=== PATIENT | male | born 1975 | race Hispanic/Latino ===

== ENCOUNTER 2018-02-05 21:13 | Emergency (ER) | payer SELFPAY ==
[~2018-02-05] VITALS: Ht 172.7 cm; Wt 84.0 kg
[2018-02-05 22:00] LABS: HEMATOCRIT 42.5 % (39.0-50.0); HEMOGLOBIN 14.4 g/dl (14.0-18.0); IMMATURE GRANULOCYTES 0.2 % (0.0-1.0); MEAN CELL VOLUME 91.6 fL CALC (80.0-100.0); MEAN CORPUSCULAR HGB CONC 33.9 g/L CALC (32.0-36.0); NEUT# 6.29 thou/uL (1.82-7.42); RED BLOOD COUNT 4.64 mill/uL (4.70-6.10); RED CELL DISTRI WIDTH 12.7 % (11.5-15.5)
[2018-02-05 22:08] LABS: ALBUMIN 3.7 g/dL (3.2-5.0); ALKALINE PHOSPHATASE 69 u/l (38-126); ANION GAP 19 (6-22 (CALC)); BILIRUBIN, TOTAL 0.4 mg/dL (0.0-1.4); BUN 15 mg/dL (9-20); BUN/CREATININE RATIO 18 (12-20 (CALC)); CARBON DIOXIDE 24 mmol/l (22-30); CHLORIDE 104 mmol/l (95-108); CREATININE 0.8 mg/dL (0.7-1.3); GFR > 60 ML/MIN (>=60 (CALC)); GFR FOR AFR.AMER. > 60 ML/MIN (>=60 (CALC)); POTASSIUM 3.7 mmol/l (3.5-5.1); SGOT/AST 24 u/l (17-59); SGPT/ALT 31 u/l (21-72); SODIUM 143 mmol/l (137-146); TOTAL PROTEIN 6.7 g/dL (6.3-8.2)
[2018-02-05] MEDS ORDERED: KEFLEX500 M1 PO (23:28)
[2018-02-05] MEDS ORDERED: PERCOCET 5/325M1 TAB PO (23:28)
[2018-02-06 00:01] VITALS: BP 121/80
== END 2018-02-06 00:01 | disposition home or self-care (01) | DRG 607 ==
LOC: ED 21:13
PROVIDERS: Emergency Medicine
DX: R22.2 Localized swelling, mass and lump, trunk (principal); F17.210 Nicotine dependence, cigarettes, uncomplicated

== ENCOUNTER 2018-02-06 23:25 | Emergency (ER) | payer SELFPAY ==
[~2018-02-06] VITALS: Ht 172.7 cm; Wt 85.6 kg
[~2018-02-06 23:25] MED LIST: KEFLEX500 M1 PO; PERCOCET 5/325M1 TAB PO
[2018-02-07 01:48] VITALS: BP 102/66
== END 2018-02-07 01:48 | disposition home or self-care (01) | DRG 395 ==
LOC: ED 23:25
DX: K61.0 Anal abscess (principal)

== ENCOUNTER 2020-05-04 10:39 | Emergency (ER) | payer OTHER ==
[~2020-05-04] VITALS: Ht 172.7 cm; Wt 81.0 kg
[2020-05-04 12:01] LABS: HEMATOCRIT 47.7 % (39.0-50.0); HEMOGLOBIN 15.5 g/dl (14.0-18.0); IMMATURE GRANULOCYTES 0.3 % (0.0-5.0); MEAN CELL VOLUME 94.5 fL CALC (80.0-100.0); MEAN CORPUSCULAR HGB 30.7 pG CALC (26.0-32.0); MEAN CORPUSCULAR HGB CONC 32.5 g/dL CAL (32.0-36.0); NEUT# 3.58 thou/uL (1.82-7.42); RED BLOOD COUNT 5.05 mill/uL (4.70-6.10); RED CELL DISTRI WIDTH 12.9 % (11.5-15.5)
[2020-05-04 12:35] LABS: URINE BILIRUBIN - DIPSTICK NEGATIVE (NEGATIVE); URINE BLOOD DIPSTICK NEGATIVE (NEGATIVE); URINE COLOR YELLOW; URINE GLUCOSE - DIPSTICK NEGATIVE (NEGATIVE); URINE KETONE NEGATIVE (NEGATIVE); URINE LEUK ESTERASE NEGATIVE (NEGATIVE); URINE NITRITE - DIPSTICK NEGATIVE (Negative); URINE PH 7.5 (4.5-8.0); URINE PROTEIN - DIPSTICK NEGATIVE (NEG-TRACE); URINE SPECIFIC GRAVITY 1.015; URINE UROBILINOGEN - DIPSTICK 0.2 E.U./dL (0.2)
[2020-05-04 12:51] LABS: ALBUMIN 4.4 g/dL (3.2-5.0); ALKALINE PHOSPHATASE 58 u/l (38-126); BILIRUBIN, TOTAL 0.5 mg/dL (0.0-1.4); BUN 13 mg/dL (9-20); BUN/CREATININE RATIO 17 (12-20 (CALC)); CARBON DIOXIDE 27 mmol/l (22-30); CHLORIDE 100 mmol/l (95-108); CREATININE 0.8 mg/dL (0.7-1.3); GFR > 60 ML/MIN (>=60 (CALC)); GFR FOR AFR.AMER. > 60 ML/MIN (>=60 (CALC)); LIPASE 34 u/l (23-300); POTASSIUM 4.2 mmol/l (3.5-5.1); TOTAL PROTEIN 7.1 g/dL (6.3-8.2)
[2020-05-04 12:52] LABS: ANION GAP 10 (6-22 (CALC)); SGOT/AST 91 u/l (17-59); SODIUM 133 mmol/l (137-146)
[2020-05-04 13:20] VITALS: BP 127/76
[2020-05-04] MEDS ORDERED: CYCLOBENZAPR5 MG PO ×2 (13:29)
== END 2020-05-04 13:27 | disposition home or self-care (01) | DRG 552 ==
LOC: ED 10:39
PROVIDERS: Family Medicine
DX: M54.2 Cervicalgia (principal); M54.6 Pain in thoracic spine; M54.5 Low back pain; R07.9 Chest pain, unspecified; R10.13 Epigastric pain; F17.210 Nicotine dependence, cigarettes, uncomplicated; W22.01XA Walked into wall, initial encounter; Y92.89 Other specified places as the place of occurrence of the external cause; Y99.0 Civilian activity done for income or pay

== ENCOUNTER 2020-05-23 13:17 | Emergency (ER) | payer SELFPAY ==
[~2020-05-23] VITALS: Ht 172.7 cm; Wt 90.9 kg
[~2020-05-23 13:17] MED LIST changes: +CYCLOBENZAPR5 MG PO
[2020-05-23 13:46] LABS: HEMATOCRIT 46.7 % (39.0-50.0); HEMOGLOBIN 15.1 g/dl (14.0-18.0); IMMATURE GRANULOCYTES 0.4 % (0.0-5.0); MEAN CELL VOLUME 94.3 fL CALC (80.0-100.0); MEAN CORPUSCULAR HGB 30.5 pG CALC (26.0-32.0); MEAN CORPUSCULAR HGB CONC 32.3 g/dL CAL (32.0-36.0); NEUT# 8.82 thou/uL (1.82-7.42); RED BLOOD COUNT 4.95 mill/uL (4.70-6.10); RED CELL DISTRI WIDTH 13.2 % (11.5-15.5)
[2020-05-23 14:02] LABS: PROTHROMBIN TIME 10.4 SECONDS (9.0-12.5)
[2020-05-23 14:07] LABS: ALBUMIN 4.4 g/dL (3.2-5.0); ALKALINE PHOSPHATASE 61 u/l (38-126); ANION GAP 11 (6-22 (CALC)); BUN 24 mg/dL (9-20); BUN/CREATININE RATIO 27 (12-20 (CALC)); CARBON DIOXIDE 25 mmol/l (22-30); CHLORIDE 106 mmol/l (95-108); CPK 531 u/l (52-200); CREATININE 0.9 mg/dL (0.7-1.3); ETHYL ALCOHOL 0 mg/dl (0-30); GFR > 60 ML/MIN (>=60 (CALC)); GFR FOR AFR.AMER. > 60 ML/MIN (>=60 (CALC)); LIPASE 40 u/l (23-300); SGOT/AST 49 u/l (17-59); SODIUM 138 mmol/l (137-146); TOTAL PROTEIN 7.3 g/dL (6.3-8.2)
[2020-05-23 14:10] LABS: BILIRUBIN, TOTAL 1.5 mg/dL (0.0-1.4)
[2020-05-23 16:31] LABS: URINE BILIRUBIN - DIPSTICK NEGATIVE (NEGATIVE); URINE BLOOD DIPSTICK SMALL (NEGATIVE); URINE COLOR YELLOW; URINE GLUCOSE - DIPSTICK NEGATIVE (NEGATIVE); URINE KETONE NEGATIVE (NEGATIVE); URINE LEUK ESTERASE NEGATIVE (NEGATIVE); URINE NITRITE - DIPSTICK NEGATIVE (Negative); URINE PROTEIN - DIPSTICK NEGATIVE (NEG-TRACE); URINE SPECIFIC GRAVITY >=1.030; URINE UROBILINOGEN - DIPSTICK 0.2 E.U./dL (0.2)
[2020-05-23 16:39] LABS: URINE WBC 0-2 WBC/hpf (0-5)
[2020-05-23 18:27] VITALS: BP 126/82
== END 2020-05-23 18:58 | disposition home or self-care (01) | DRG 918 ==
LOC: ED 13:17
PROVIDERS: Family Medicine
DX: T40.5X1A Poisoning by cocaine, accidental (unintentional), initial encounter (principal); T43.621A Poisoning by amphetamines, accidental (unintentional), initial encounter; T42.4X1A Poisoning by benzodiazepines, accidental (unintentional), initial encounter; T40.2X1A Poisoning by other opioids, accidental (unintentional), initial encounter; T40.7X1A Poisoning by cannabis (derivatives), accidental (unintentional), initial encounter; R10.84 Generalized abdominal pain; F14.10 Cocaine abuse, uncomplicated; F15.10 Other stimulant abuse, uncomplicated; M54.5 Low back pain; F16.10 Hallucinogen abuse, uncomplicated; F17.210 Nicotine dependence, cigarettes, uncomplicated; F11.10 Opioid abuse, uncomplicated

== ENCOUNTER 2020-06-05 02:17 | Observation (INO) | payer SELFPAY ==
[~2020-06-05] VITALS: Ht 172.7 cm; Wt 82.7 kg
--- NOTE | 2020-06-05 02:17 | NUR ---
PT TO ROOM 9 BY EMS FOR CHEST PAIN THAT STARTED ABOUT 1800. PAIN REPRODUCED WITH PALPATION.
[2020-06-05 03:07] LABS: HEMATOCRIT 42.1 % (39.0-50.0); IMMATURE GRANULOCYTES 0.4 % (0.0-5.0); MEAN CELL VOLUME 91.3 fL CALC (80.0-100.0); MEAN CORPUSCULAR HGB 30.4 pG CALC (26.0-32.0); MEAN CORPUSCULAR HGB CONC 33.3 g/dL CAL (32.0-36.0); NEUT# 6.14 thou/uL (1.82-7.42); RED BLOOD COUNT 4.61 mill/uL (4.70-6.10); RED CELL DISTRI WIDTH 12.7 % (11.5-15.5); URINE BLOOD DIPSTICK TRACE-LYSED (NEGATIVE); URINE COLOR YELLOW; URINE GLUCOSE - DIPSTICK NEGATIVE (NEGATIVE); URINE KETONE TRACE mg/dL (NEGATIVE); URINE LEUK ESTERASE NEGATIVE (NEGATIVE); URINE NITRITE - DIPSTICK NEGATIVE (Negative); URINE PROTEIN - DIPSTICK NEGATIVE (NEG-TRACE); URINE SPECIFIC GRAVITY >=1.030; URINE UROBILINOGEN - DIPSTICK 0.2 E.U./dL (0.2)
--- NOTE | 2020-06-05 03:09 | NUR ---
WOKE PT UP TO MEDICATE FOR PAIN 07/29. PT STILL CAN NOT TELL ME WHAT MEDICATION HE TAKES OTHER THAN A MUSCLE RELAXER AND OTHER STUFF
[2020-06-05 03:20] LABS: ALBUMIN 4.1 g/dL (3.2-5.0); ALKALINE PHOSPHATASE 70 u/l (38-126); AMYLASE 37 u/l (30-110); ANION GAP 12 (6-22 (CALC)); BUN 13 mg/dL (9-20); BUN/CREATININE RATIO 14 (12-20 (CALC)); CARBON DIOXIDE 24 mmol/l (22-30); CHLORIDE 102 mmol/l (95-108); CREATININE 0.9 mg/dL (0.7-1.3); ETHYL ALCOHOL 0 mg/dl (0-30); GFR > 60 ML/MIN (>=60 (CALC)); GFR FOR AFR.AMER. > 60 ML/MIN (>=60 (CALC)); LIPASE 65 u/l (23-300); POTASSIUM 3.8 mmol/l (3.5-5.1); SGOT/AST 32 u/l (17-59); SODIUM 134 mmol/l (137-146); TOTAL PROTEIN 7.1 g/dL (6.3-8.2)
[2020-06-05 03:22] LABS: URINE BILIRUBIN - DIPSTICK NEGATIVE (NEGATIVE)
[2020-06-05 03:28] LABS: BILIRUBIN, TOTAL 0.8 mg/dL (0.0-1.4)
[2020-06-05 03:32] LABS: MYOGLOBIN 22 ng/mL (0 - 121)
[2020-06-05 03:36] LABS: D-DIMER 7.34 mg/L (0.19-0.60)
--- NOTE | 2020-06-05 04:09 | NUR ---
PT SLEEPING. D DIMER ELEVATED DR WILSON INFORMED. CTA ORDERED.
--- NOTE | 2020-06-05 04:32 | NUR ---
PT MEDICATED WITH BENADRYL AND SOLUMEDROL FOR ALLERGY TO IVP DYE. PT STATES HE ONLY EXPERIENCED RASH DID NOT HAVE ANY SOB WITH IVP DYE.
[2020-06-05 04:36] LABS: ACT PARTIAL THROMBO TIME 26.7 SECONDS (20.0-32.5); INTERNATIONAL NORMALIZED RATIO 1.1 RATIO (0.7-1.3); PROTHROMBIN TIME 10.5 SECONDS (9.0-12.5)
--- NOTE | 2020-06-05 05:39 | NUR ---
PT BACK FROM CT WAITING ON RESULTS.
--- NOTE | 2020-06-05 05:53 | NUR ---
DR WILSON IN TO GO OVER RESULTS.
--- NOTE | 2020-06-05 06:25 | NUR ---
TRIED TO CALL REPORT TO FLOOR. DAY SHIFT WILL CALL SOON THEY ARRIVE.
--- NOTE | 2020-06-05 07:05 | NUR ---
Admission Note Report Given to: RADHA KEN Transported by: X Wheelchair Stretcher Transported with: X Nurse Transporter X Patent IV O2 X Behavioral Sciences Department Chair Location: ICU X MS2 PT TRANSPORTED BY RADHA ECHOLS. JESUS MANUEL TOOK REPORT DUE TO RADHA MICHAELS RUNNING LATE.
--- NOTE | 2020-06-05 07:07 | NUR ---
PT ARRIVED TO UNIT VIA WHEELCHAIR WITH ER STAFF; DROWSY AND ORIENTED. STOOD AND AMBUALTED TO BED INDEPENDENTLY WITH SUPERVISION; VSS. TELE ON. IV SITE APPEARS HEALTHY AND FLUSHES. PT VERY DROWSY; TURNED ONTO LEFT SIDE AND FELL ASLEEP. EDUCATED PHARMACY TECHNICIAN INFUSION LIGHT AND PLACED WITHIN REACH. SAFETY MEASURES IN PLACE INCLUDING BED ALARM.
[2020-06-05 07:10] VITALS: BP 135/90
[2020-06-05] MEDS ORDERED: NAPROXEN SODIU500 M1 PO (07:39)
--- NOTE | 2020-06-05 09:11 | NUR ---
PT SITTING UP MORE AWAKE; ALERT AND OREINTED. REQUESTING INFORMATION ABOUT LOCAL DRUG REHABS. ASA GIVEN. IV FLUIDS INITIATED. CONTINUES TO C/O LEFT SIDED CHEST PAIN.
--- NOTE | 2020-06-05 10:15 | NUR ---
PT GOT INTO SHOWER INDEPENDENLTY WITH GOWN ON AND IV CONNECTED. IV REMAINS INTACT AND PT NOW SITTING UP ON EDGE OF BED AFTER ASSISTANCE. DURING ADMISSION ASSESSMENT PT REPORTS THAT HE IS LIVING IN A SHED AT HIS [place] HOUSE AND HE IS CURRENTLY FROM HIS . PT TEARFUL AND VERBALIZES THAT IT IS HARD FOR HIM TO QUIT DRUGS DUE TO PEER PRESSURE AND AVAILABILITY.
--- NOTE | 2020-06-05 10:30 | NUR ---
LAB AT BEDSIDE FOR TROPONIN. PT C/O INCREASED CP TO LEFT SIDE OF CHEST. RELAXATION TECHNIUQES ENCOURAGED. SITTING UP MAKING PHONE CALLS.
[2020-06-05 10:50] VITALS: BP 113/75
--- NOTE | 2020-06-05 11:16 | NUR ---
CASE MANAGEMENT AT BEDSIDE TO DISCUSS RESOURCES AND GIVE SUPPORT. PT REPORTS THAT HE WAS RECEIVING MEDICATIONS FOR BIPOLAR DISORDER WHILE INCARCERATED, BUT DISCONTINUED THE MEDS AFTER HE WAS RELEASED.
--- NOTE | 2020-06-05 12:00 | NUR ---
AT BEDSIDE REQUESTING UPDATE FROM NURSE. REPORTS REPEAT BEHAVIORS AND STATES THE LIVES IN A SHED "BECAUSE HE CHOOSES TO SO HE CAN DO DRUGS." TROPONIN NEGATIVE.
--- NOTE | 2020-06-05 15:35 | NUR ---
TRAMADOL GIVEN FOR LEFT CHEST, SIDE, AND BACK PAIN.
[2020-06-05 15:48] VITALS: BP 121/77
--- NOTE | 2020-06-05 17:15 | NUR ---
PT REPORTS THAT ULTRAM WAS NOT VERY EFFECTIVE FOR HIS PAIN AND REQUESTS SOMETHING DIFFERENT. MOTRIN GIVEN AT THIS TIME. PT STATES THAT OXYCODONE IS EFFECTIVE AND ASKS IF HE MAY HAVE THAT FOR HIS CHEST PAIN. WILL NOTIFY MD. PT RESTING IN BED SEMI FOWLERS WATCHING TV; ALERT AND ORIENTED. NO OTHER REQUESTS AT THIS TIME. CALL LIGHT WITHIN REACH.
--- NOTE | 2020-06-05 18:21 | NUR ---
LAB AT BEDSIDE. DISCONNECTED FROM IV FOR SHOWER.
[2020-06-05 18:51] VITALS: BP 120/76
--- NOTE | 2020-06-05 19:00 | NUR ---
REPORT RECEAVED FROM RADHA MICHAELS. PT RESTING IN BED. NO S/S OF DISTRESS AT THIS TIME. WILL CONTINUE TO MONITOR.
--- NOTE | 2020-06-05 20:00 | NUR ---
PT RESTING IN BED ALERT AND ORIENTED. RESPIRATIONS EVEN AND UNLABORED ON RA. LUNGS SOUND CLEAR. PEDAL PULSES ARE STRONG. PT ASKING " CAN I GO HOME AND COME BACK TOMORROW TO SAVE MONEY? LIKE IF YOU COULD JUST GIVE ME A PRESCRIPTION FOR SOMETHING TO HELP ME SLEEP THROUGH THIS PAIN AND A NOTE SAYING THIS IS RELATED TO MY FALL AT WORK, YOU KNOW SO WORK [employer] WILL COVER THIS VISIT, I'LL JUST COME BACK TOMORROW." INFORMED PT THAT HE COULD LEAVE AGAINST MEDICAL ADVICE, HOWEVER THE DOCTOR IS NOT HERE TO GIVE HIM ANY PRESCRIPTIONS OR SIGN OFF ON THIS BEING RELATED TO HIS FALL AT WORK. PT STATES HE'LL JUST STAY UNTIL TOMORROW WHEN THE DOCTOR COMES IN. SAFETY PREACUTIONS IN PLACE. WILL CONTINUE TO MONITOR.
--- NOTE | 2020-06-05 21:19 | NUR ---
PT RESTING IN BED, RESPIRATIONS EVEN AND UNLABORED ON RA. PT COMPLAINING OF BACK PAIN RATING IT A 10/10, ASKING FOR PAIN MEDICATION, PT MEDICATED WITH TYLENOL PER EMAR ORDERS, PT EDUCATIDED ON PAIN MED SCHEDULE. PT PROVIDED WITH ICE PACKS FOR LOWER BACK PAIN. SAFETY PRECAUTIONS IN PLACE. WILL CONTINUE TO MONITOR.
[2020-06-05 23:31] VITALS: BP 129/86
--- NOTE | 2020-06-05 23:31 | NUR ---
PT REPORTS PAIN BEING A 10/10 IN LOWER BACK, PT MEDICATED PER EMAR ORDERS. PT PROVIDED WITH A SNACK PER REQUEST. SAFETY PRECAUTIONS IN PLACE. WILL CONTINUE TO MONITOR.
--- NOTE | 2020-06-06 00:10 | NUR ---
PT AMBULATING THE HALLS, GATE STEADY, RESPIRATIONS EVEN AND UNLABORED ON RA.
[2020-06-06 04:00] VITALS: BP 130/76
--- NOTE | 2020-06-06 04:00 | NUR ---
PT REPORTS HAVING PAIN 10/10 IN LOWER BACK AND SIDE. PT TO BE MEDICATED PER EMAR ORDERS, PT OFFERED ICE PACK. SAFETY PRECAUTIONS IN PLACE. WILL CONTINUE TO MONITOR.
[2020-06-06 05:40] LABS: HEMATOCRIT 43.2 % (39.0-50.0); HEMOGLOBIN 13.8 g/dl (14.0-18.0); MEAN CELL VOLUME 93.9 fL CALC (80.0-100.0); MEAN CORPUSCULAR HGB CONC 31.9 g/dL CAL (32.0-36.0); RED BLOOD COUNT 4.6 mill/uL (4.70-6.10); RED CELL DISTRI WIDTH 12.6 % (11.5-15.5)
[2020-06-06 05:58] LABS: ANION GAP 11 (6-22 (CALC)); BUN 10 mg/dL (9-20); BUN/CREATININE RATIO 13 (12-20 (CALC)); CALCULATED LDLCHOLESTEROL 79 mg/dL (62-129 (CALC)); CARBON DIOXIDE 24 mmol/l (22-30); CHLORIDE 104 mmol/l (95-108); CHOLESTEROL HDL RATIO 2.8 (<4.4 (CALC)); CREATININE 0.7 mg/dL (0.7-1.3); GFR > 60 ML/MIN (>=60 (CALC)); GFR FOR AFR.AMER. > 60 ML/MIN (>=60 (CALC)); HDL CHOLESTEROL 54 mg/dL (>=40); POTASSIUM 3.7 mmol/l (3.5-5.1); SODIUM 136 mmol/l (137-146); TOTAL CHOLESTEROL 151 mg/dl (0-199); TOTAL TRIGLYCERIDES 91 mg/dl (30-149); VLDL CHOLESTROL 18 mg/dl (5-56 (CALC))
[2020-06-06 07:39] VITALS: BP 146/90
--- NOTE | 2020-06-06 07:39 | NUR ---
REPORT RECEIVED FROM RADHA ALVARADO. PT FOUND AMBULATING INTO BATHROOM WITH IV POLE STILL PLUGGED INTO WALL; CORD AND TUBING PULLED TAUNT; PT REPORTS THAT HE IS COUGHING UP BLOOD; UNABLE TO SHOW SPUTUM OR DESCRIBE; INSTRUCTED TO SAVE SAMPLE IF HE HAS ANY. ALERT AND ORIENTED. C/O SEVERE 10/10 PAIN TO LEFT SIDE INCLUDING CHEST, BACK, SIDE; ALSO C/O NUMBNESS TO RIGHT LEG. PLAN OF CARE REVIEWED. PT ENCOURAGED TO VERBALIZE CONCERNS. STATES UNDERSTANDING. SAFETY MEASURES IN PLACE. CALL LIGHT WITHIN REACH.
--- NOTE | 2020-06-06 08:00 | NUR ---
ULTRAM GIVEN AT THIS TIME FOR PAIN AND DISCOMFORT. ENCOURAGED TO RELAX; PT ANXIOUS. SKIN WARM AND MOIST.
--- NOTE | 2020-06-06 09:30 | NUR ---
PT PREMEDICATED FOR CTA WITH SOLUMEDROL, BENEDRYL, AND PEPCID.
--- NOTE | 2020-06-06 09:40 | NUR ---
OFF UNIT WHEELCHAIR IN STABLE CONDITION FOR CTA; PT TOLERATED WELL. BACK TO ROOM AND AMBULATED INTO BATHROOM TO VOID. ENCOURAGED P0 INTAKE.
[2020-06-06 11:05] VITALS: BP 141/80
--- NOTE | 2020-06-06 11:19 | NUR ---
KATIE FALLON AT BEDSIDE TO DISCUSS CTA RESULTS AND POC. BIOFIRE OBTAINED AND SENT TO LAB.
--- NOTE | 2020-06-06 11:50 | NUR ---
LAB AT BEDSIDE TO COLLECT BLOOD CULTURES.
--- NOTE | 2020-06-06 13:30 | NUR ---
OFF UNIT VIA WHEELCHAIR FOR ECHO.
--- NOTE | 2020-06-06 14:05 | NUR ---
RETURNED FROM ECHO AND CURRENTLY IN SHOWER.
--- NOTE | 2020-06-06 14:45 | NUR ---
REQUESTING STRONGER PAIN MEDICATION. TYLENOL GIVEN ALONG WITH ATIVAN FOR ANXIETY. ROCEPHIN INFUSING AT THIS TIME. CALL LIGHT WITHIN REACH.
[2020-06-06 15:48] VITALS: BP 128/83
--- NOTE | 2020-06-06 18:04 | NUR ---
ULTRAM GIVEN FOR 8/10 LEFT SIDE PAIN; AT BEDSIDE.
[2020-06-06 19:00] VITALS: BP 120/78
--- NOTE | 2020-06-06 19:02 | NUR ---
REPORT RECEIVED FROM YVROSE MICHAELS RESTING IN BED. NO S/S OF DISTRESS AT THIS ITME. WILL CONTINUE TO MONITOR.
--- NOTE | 2020-06-06 21:23 | NUR ---
PT RESTING IN BED, ALERT AND ORIETNED. RESPIRATIONS EVEN AND UNLABORED ON RA, LUNGS ARE SOUND CLEAR. PEDAL PULSES ARE WEAK. PT REPORTS BACK PAIN RATING IT A 8/10, PT MEDICATED PER EMAR ORDERS. TELE IN PLACE. CALL KRAUS WITHIN REACH. WILL CONTINUE TO MONITOR.
--- NOTE | 2020-06-06 23:43 | NUR ---
PT COMPLAINING OF CHEST PAIN/TIGHTNESS, AND FEELING SHORT OF BREATH, MD TO BE NOTIFIED.
[2020-06-07] VITALS: BP 114/70
--- NOTE | 2020-06-07 00:30 | NUR ---
PT RESTING IN BED, RESPIRATIONS EVEN AND UNLABORED ON RA. SAFETY PRECAUTIONS IN PLACE. WILL CONTINUE TO MONITOR.
[2020-06-07 03:10] VITALS: BP 133/87
--- NOTE | 2020-06-07 04:27 | NUR ---
PT RESTING IN BED RESPIRATIONS EVEN AND UNLABORED ON RA. SAFETY PRECAUTIONS IN PLACE. WILL CONTINUE TO MONITOR.
[2020-06-07 05:08] LABS: HEMATOCRIT 39.9 % (39.0-50.0); HEMOGLOBIN 12.9 g/dl (14.0-18.0); MEAN CELL VOLUME 93.9 fL CALC (80.0-100.0); MEAN CORPUSCULAR HGB 30.4 pG CALC (26.0-32.0); MEAN CORPUSCULAR HGB CONC 32.3 g/dL CAL (32.0-36.0); RED BLOOD COUNT 4.25 mill/uL (4.70-6.10); RED CELL DISTRI WIDTH 12.8 % (11.5-15.5)
[2020-06-07 05:30] LABS: ANION GAP 9 (6-22 (CALC)); BUN 13 mg/dL (9-20); BUN/CREATININE RATIO 20 (12-20 (CALC)); CARBON DIOXIDE 24 mmol/l (22-30); CHLORIDE 105 mmol/l (95-108); CREATININE 0.7 mg/dL (0.7-1.3); GFR > 60 ML/MIN (>=60 (CALC)); GFR FOR AFR.AMER. > 60 ML/MIN (>=60 (CALC)); POTASSIUM 4.2 mmol/l (3.5-5.1); SODIUM 135 mmol/l (137-146)
[2020-06-07 07:27] VITALS: BP 115/69
--- NOTE | 2020-06-07 07:30 | NUR ---
REPORT RECIEVED FROM RADHA ALVARADO. PT SITTING UP IN BED; ALERT AND ORIENTED. C/O 8/10 PAIN TO LEFT CHEST SIDE AND BACK; ULTRAM GIVEN AT THIS TIME. RESPIRATIONS EVEN AND UNLABORED ON ROOM AIR; SPO2 100%. TELE ON. IV FLUIDS INFUSING WITHOUT DIFFICULTY INTO IV SITE TO LAC; SITE APPEARS HEALTHY. PLAN OF CARE REVIEWED. PT ENCOURAGED TO VERBALIZE CONCERNS. STATES UNDERSTANDING. SAFETY MEASURES IN PLACE. CALL LIGHT WITHIN REACH.
--- NOTE | 2020-06-07 08:10 | NUR ---
DR. MCNULTY AT BEDSIDE TO DISCUSS DISCHARGE AND POC.
[2020-06-07 10:30] VITALS: BP 126/75
--- NOTE | 2020-06-07 10:47 | NUR ---
ATIVAN GIVEN PER PT REQUEST FOR ANXIETY. VISITOR AT BEDSIDE.
--- NOTE | 2020-06-07 13:03 | NUR ---
PT UPDATED ON DISCHARGE. PHARMACY WORKING ON DISCHARGE MEDICATIONS. CONTINUES TO COMPLAIN OF PERSISTENT 8/10 LEFT SIDE CHEST, SIDE, BACK PAIN. NO OTHER REQUESTS OR CONCERNS AT THIS TIME. ATIVAN EFFECTIVE FOR ANXIETY. CALL LIGHT WITHIN REACH.
[2020-06-07] MEDS ORDERED: ATIVAN1 M1 PO (14:15)
[2020-06-07] MEDS ORDERED: LEVAQUIN750 MG PO (14:25)
[2020-06-07] MEDS ORDERED: XARELTO15 MG PO (14:29)
--- NOTE | 2020-06-07 14:45 | NUR ---
IV site discontinued, cath intact. No edema , no redness, voices no discomfort.
--- NOTE | 2020-06-07 15:05 | NUR ---
Discharge instructions given. Patient verbalizes understanding of same and reinforced importance of following up to continue Xarelto for PEs. Discharged in stable condition via Ambulatory to Home with friend. All belongings sent with pt.
[2020-06-07] MEDS ORDERED: XARELTO20 MG PO (15:24)
== END 2020-06-07 15:04 | disposition home or self-care (01) | DRG 175 ==
LOC: ED 02:17 → ED-I 05:50 → ED 06:08 → ED-I 06:09 → MS2 06:24
PROVIDERS: Family Medicine; Nurse Practitioner; ADMIT Internal Medicine; ATTEND Internal Medicine
PROC: 3E0234Z Introduction of Serum, Toxoid and Vaccine into Muscle, Percutaneous Approach (ICD-10-PCS; principal; 2020-06-06)
DX: I26.99 Other pulmonary embolism without acute cor pulmonale (principal); J18.9 Pneumonia, unspecified organism; M54.9 Dorsalgia, unspecified; G89.29 Other chronic pain; F15.10 Other stimulant abuse, uncomplicated; F14.10 Cocaine abuse, uncomplicated; F13.10 Sedative, hypnotic or anxiolytic abuse, uncomplicated; F41.9 Anxiety disorder, unspecified; F98.8 Other specified behavioral and emotional disorders with onset usually occurring in childhood and adolescence; F17.210 Nicotine dependence, cigarettes, uncomplicated; Z91.041 Radiographic dye allergy status; Z23 Encounter for immunization; Z20.828 Contact with and (suspected) exposure to other viral communicable diseases
CPT/HCPCS: G0378; J1650; J2060; Q9967

== ENCOUNTER 2021-02-19 17:27 | Emergency (ER) | payer BC ==
[~2021-02-19 17:27] MED LIST changes: +ATIVAN1 M1 PO; +LEVAQUIN750 MG PO; +NAPROXEN SODIU500 M1 PO; +XARELTO15 MG PO; +XARELTO20 MG PO
[2021-02-19] MEDS ORDERED: ZPAK PO (19:02)
[2021-02-19 19:10] VITALS: BP 136/82
== END 2021-02-19 19:18 | disposition home or self-care (01) | DRG 153 ==
LOC: ED 17:27
DX: J06.9 Acute upper respiratory infection, unspecified (principal); F17.200 Nicotine dependence, unspecified, uncomplicated; Z86.711 Personal history of pulmonary embolism; Z20.822 Contact with and (suspected) exposure to COVID-19